=== PATIENT | female | born 1970 | race Caucasian/White ===

== ENCOUNTER 2018-04-19 12:50 | Emergency (ER) | payer OTHER ==
[2018-04-19] MEDS ORDERED: IBUPROFEN 600 MG TAB PO ONE (13:41)
[2018-04-19 14:00] LABS: PLATELET COUNT 171 10^3/uL (150-400)
[2018-04-19] MEDS ORDERED: CEPHALEXIN 500 MG CAP PO ONE (14:02)
--- NOTE | 2018-04-19 14:07 | EDPHY ---
H & P Stated Complaint: ? inj to r foot since monday/not sure what actually caused it Time Seen by Provider: 04/19/18 13:03 HPI/ROS: CHIEF COMPLAINT: Right foot pain and swelling HISTORY OF PRESENT ILLNESS: 47-year-old female presents with right foot pain and swelling. Onset of generalized and atraumatic right foot pain 5 days ago, gradually increasing since. The pain is now moderate and is associated with moderate swelling of the right foot. No fever. No prior history of similar symptoms. No prior history of gout. REVIEW OF SYSTEMS: complete 10 point ROS reviewed and is negative except for the noted elements in the HPI Source: Patient - Personal History LMP (Females 10-55): IUD In Place Current Tetanus Diphtheria and Acellular Pertussis (TDAP): No - Medical/Surgical History Hx Asthma: No Hx Chronic Respiratory Disease: No Hx Diabetes: No Hx Cardiac Disease: No Hx Renal Disease: No Hx Cirrhosis: No Hx Alcoholism: No Hx HIV/AIDS: No Hx Splenectomy or Spleen Trauma: No Other PMH: HTN/meningioma - Social History Smoking Status: Never smoked Alcohol Use: Sober - Physical Exam Exam: General Appearance: Alert, pleasant Eyes: Pupils equal and round, no conjunctival pallor or injection ENT, Mouth: Mucous membranes moist Neck: Normal inspection Respiratory: Lungs are clear to auscultation Cardiovascular: Regular rate and rhythm Gastrointestinal: Abdomen is soft and nontender Neurological: A&O, nonfocal exam Skin: Warm and dry Extremities: Right foot-mild diffuse swelling, erythema over the dorsal aspect of the foot, especially over the 1st MTP, pain with range of motion of the 1st MTP, no pain with ankle range of motion Psychiatric: Mood and affect normal Constitutional: Initial Vital Signs Temperature (C) 36.9 C 04/19/18 12:54 Heart Rate 84 04/19/18 12:54 Respiratory Rate 18 04/19/18 12:54 Blood Pressure 136/98 H 04/19/18 12:54 O2 Sat (%) 97 04/19/18 12:54 O2 Delivery Mode Room Air Allergies/Adverse Reactions: No Known Allergies Allergy (Verified 04/19/18 12:54) Home Medications: Medication Instructions Recorded Losartan Potassium [Cozaar 50 mg 50 mg PO DAILY #15 tab 09/29/15 (*)] amLODIPine BESYLATE [Norvasc 5 mg 5 mg PO DAILY #15 tab 09/29/15 (*)] Cephalexin [Keflex (*)] 500 mg PO TID #30 cap 04/19/18 Dilantin 04/19/18 Hydrocodone/APAP 5/325 [[place] 1 - 2 tab PO Q4H PRN #10 tab 04/19/18 5/325] Medical Decision Making - Diagnostics Imaging Results: Foot X-Ray 04/19/18 13:03 Impression: 1. Subchondral cyst at the base of the second toe proximal phalanx without associated joint space narrowing. This could be related to incidental fibrous cortical defect. 2. Mild soft tissue swelling adjacent to the first MTP joint as well as along the dorsal aspect of the metatarsals. Etiology is indeterminate. Consider cellulitis or gout. There are no associated erosions. Imaging: I viewed and interpreted images myself ED Course/Re-evaluation: This patient presents with atraumatic right foot pain and swelling. Physical exam suggestive of foot cellulitis. No obvious wound or bite sam. X-ray is unremarkable; no fracture and no foreign body visualized. Considered gout versus septic arthritis of 1st toe; given onset was entire foot initially, more likely cellulitis. Would not tap 1st MTP joint given overlying erythema. Will rx with ibuprofen and Keflex. Follow up with PCP. Warning signs discussed. Differential Diagnosis: Includes though not limited to gout, septic arthritis, osteomyelitis, retained foreign body - Data Points Laboratory Results: Laboratory Results 04/19/18 13:30 04/19/18 13:30 Medications Given: Discontinued Medications Cephalexin HCl (Keflex) 500 mg PO EDNOW ONE PRN Reason: Protocol Stop: 04/19/18 14:03 Last Admin: 04/19/18 14:17 Dose: 500 mg Ibuprofen (Motrin) 600 mg PO EDNOW ONE Stop: 04/19/18 13:42 Last Admin: 04/19/18 13:45 Dose: 600 mg Departure - Departure Disposition: Home, Routine, Self-Care Clinical Impression: Cellulitis Condition: Good Instructions: Crutch Instructions (ED), Cellulitis (ED) Additional Instructions: Ibuprofen 600 mg 3 times daily while the pain persists. Take antibiotics as prescribed. Return for worsening symptoms or any concerns. Follow-up with your primary care physician in 2 days for recheck. Referrals: Dieter Mason MD [Medical Doctor] - As per Instructions Prescriptions: Cephalexin [Keflex (*)] 500 mg PO TID #30 cap Hydrocodone/APAP 5/325 [[place] 5/325] 1 - 2 tab PO Q4H PRN #10 tab PRN Reason: Pain, Moderate
[2018-04-19 14:17] VITALS: BP 141/83
== END 2018-04-19 14:26 | disposition home or self-care (01) ==
DX: L03.115 Cellulitis of right lower limb (principal); I10 Essential (primary) hypertension